=== PATIENT | male | born 1965 | race Hispanic/Latino ===

== ENCOUNTER 2020-08-01 07:43 | Day surgery (SDC) | payer BC ==
[~2020-08-01] VITALS: Ht 181.6 cm; Wt 143.3 kg
[2020-08-01] VITALS (19 sets, daily range): BP systolic 107–139; BP diastolic 48–86
[~2020-08-01 07:43] MED LIST: LISI-617 PO; METF-444 PO; METR-172 PO; ONDA-104 PO; SODIUM CHLORIDE 0.9% 1000ML 1,000 ML IV ONE
[2020-08-01] MEDS ORDERED: HYOS-28 PO (09:12)
[2020-08-01] MEDS ORDERED: INDOMETHACIN 50 MG SUPP.RECT RC SCH (09:15)
[2020-08-01] MEDS ORDERED: IOHEXOL-350 50ML VIAL IV ONE (10:09)
[2020-08-01] MEDS ORDERED: PROPOFOL 10 MG/ML 20ML VIAL IV ONE (10:23)
== END 2020-08-01 12:21 | disposition home or self-care (01) ==
LOC: DAH 07:43 → ENDO 07:43
PROVIDERS: ATTEND Internal Medicine Gastroenterology
DX: Z46.59 Encounter for fitting and adjustment of other gastrointestinal appliance and device (principal); K80.50 Calculus of bile duct without cholangitis or cholecystitis without obstruction; Z20.828 Contact with and (suspected) exposure to other viral communicable diseases; K29.50 Unspecified chronic gastritis without bleeding; K83.8 Other specified diseases of biliary tract; R94.5 Abnormal results of liver function studies; R13.10 Dysphagia, unspecified; I10 Essential (primary) hypertension; E78.5 Hyperlipidemia, unspecified; E66.01 Morbid (severe) obesity due to excess calories; E11.9 Type 2 diabetes mellitus without complications; Z79.899 Other long term (current) drug therapy; Z79.84 Long term (current) use of oral hypoglycemic drugs; Z80.0 Family history of malignant neoplasm of digestive organs; Z90.49 Acquired absence of other specified parts of digestive tract; Z68.41 Body mass index [BMI] 40.0-44.9, adult
CPT/HCPCS: 43239; 43262; 43264; 74328; 82948 ×2; 87426; A4215 ×2; A4221; A4222; A4223; A4606; A4657; A4663; C1769; C1773; J2704; J7030; Q9967; 74330